=== PATIENT | male | born 1950 | race Caucasian/White ===

== ENCOUNTER 2021-05-15 01:12 | Emergency (ER) | payer OTHER ==
[2021-05-15 01:28] VITALS: PULSE 51; TEMP 97.5; BMI 23.3
[2021-05-15] MEDS ORDERED: SUCRALFATE 1 GM TABLET (FP) PO ONE (01:47)
[2021-05-15] MEDS ORDERED: SUCRALFATE 1 GM/10 ML UNIT DOSE CUPS ONE (01:51)
[2021-05-15] MEDS ORDERED: BENZOCAINE/MENTH/CETYLPYRD CL 1 EACH LOZENGE MM PRN (02:35)
[2021-05-15 02:47] VITALS: BP 155/77
== END 2021-05-15 02:48 | disposition home or self-care (01) ==
LOC: FER 01:12
DX: K12.2 Cellulitis and abscess of mouth (principal); K21.9 Gastro-esophageal reflux disease without esophagitis
CPT/HCPCS: 70360-TC-FY; 93005; 99284-25